=== PATIENT | male | born 1960 | race African-American/Black ===

== ENCOUNTER 2023-12-09 16:49 | Emergency (ER) | payer OTHER ==
[2023-12-09 16:58] VITALS: RESP 20; BMI 32.5
[2023-12-09 18:32] LABS: BASO % 0.8 % (0-2.0); EOS % 0.9 % (0-4.5); HEMOGLOBIN 12.5 GM/dL (11.7-16.9); LYMPH % 27.3 % (8-40); MCHC 32.9 g/dl (32.0-35.9); MEAN CELL VOLUME 94.2 fl (80-96); MEAN PLT VOLUME 8.4 fl (7.5-11.1); MONO % 8.6 % (3.8-10.2); NEUT % 62.4 % (42.8-82.8); PLATELET COUNT 213 10^3/uL (134-434); RBC 4.04 M/mm3 (4.00-5.60); RDW 13.7 % (11.9-15.9)
[2023-12-09 18:47] LABS: INR 1.04 (0.83-1.09)
[2023-12-09 18:49] LABS: ACTIVATED PTT 32.9 SECONDS (25.2-36.5)
[2023-12-09 18:51] LABS: POTASSIUM 4.1 mmol/L (3.5-5.1)
[2023-12-09 18:53] LABS: CALCIUM 9.1 mg/dL (8.5-10.1)
[2023-12-09 18:55] LABS: ALBUMIN 3.5 g/dl (3.4-5.0); BLOOD UREA NITROGEN 13.3 mg/dL (7-18)
[2023-12-09 18:59] LABS: BILIRUBIN,TOTAL 0.7 mg/dL (0.2-1); TOT PROT 6.8 g/dl (6.4-8.2)
[2023-12-09 19:41] VITALS: BP 130/76; PULSE 58; TEMP 97.8
[2023-12-09 19:49] LABS: HIV INTERPRETATION NEGATIVE (NEGATIVE)
== END 2023-12-09 19:40 | disposition home or self-care (01) ==
LOC: JER 16:49
DX: R79.9 Abnormal finding of blood chemistry, unspecified (principal)
CPT/HCPCS: 36415; 80053; 85025; 85610; 85730; 86803; 87389; 99283-25

== ENCOUNTER 2023-12-16 23:11 | Emergency (ER) | payer OTHER ==
[2023-12-16 23:19] VITALS: BP 129/79; PULSE 79; RESP 18; TEMP 97.3; BMI 32.5
[2023-12-17 01:03] LABS: POTASSIUM 4.7 mmol/L (3.5-5.1)
[2023-12-17 01:05] LABS: BLOOD UREA NITROGEN 10.6 mg/dL (7-18); CALCIUM 9.6 mg/dL (8.5-10.1)
[2023-12-17 02:32] LABS: BASO % 0.5 % (0-2.0); EOS % 0.8 % (0-4.5); HEMATOCRIT 36.8 % (35.4-49); HEMOGLOBIN 12.1 GM/dL (11.7-16.9); LYMPH % 18.2 % (8-40); MCHC 32.8 g/dl (32.0-35.9); MEAN CELL VOLUME 94.5 fl (80-96); MEAN PLT VOLUME 9.1 fl (7.5-11.1); MONO % 12.5 % (3.8-10.2); PLATELET COUNT 224 10^3/uL (134-434); RDW 14.1 % (11.9-15.9)
[2023-12-17] MEDS ORDERED: ACETAMINOPHEN 325 MG TABLET (FP) ONE (04:44)
[2023-12-17] MEDS: ACETAMINOPHEN 325 MG TABLET (FP) PO ONE (04:46)
== END 2023-12-17 04:46 | disposition home or self-care (01) ==
LOC: JER 23:11
DX: K12.2 Cellulitis and abscess of mouth (principal); K08.89 Other specified disorders of teeth and supporting structures
CPT/HCPCS: 36415; 70487-TC; 80048; 85025; 99285-25; Q9967

== ENCOUNTER 2024-07-22 05:17 | Day surgery (SDC) | payer OTHER ==
[2024-07-22] MEDS ORDERED: ACETAMINOPHEN 500 MG TABLET (FP) PO PRN (09:06)
[2024-07-22] MEDS: LIDOCAINE HCL 1% PRESERVATIVE FREE - 30ML VIAL IJ ONE (14:08)
[2024-07-22 15:56] VITALS: RESP 18
[2024-07-22] MEDS: IOHEXOL 180 MG/1 ML ML IJ ONE (16:09)
[2024-07-22] MEDS: DEXAMETHASONE SOD PHOSPHATE 10 MG/1 ML VIAL IM ONE (16:10)
[2024-07-22 16:42] VITALS: TEMP 97.7
[2024-07-22 18:18] VITALS: BP 116/68; PULSE 60
== END 2024-07-22 18:38 | disposition home or self-care (01) ==
LOC: JASU-SURG 05:17
PROVIDERS: ATTEND Pain Medicine Pain Medicine
PROC: 3E0R3BZ Introduction of Anesthetic Agent into Spinal Canal, Percutaneous Approach (ICD-10-PCS; 2024-07-22)
PROC: 3E0R33Z Introduction of Anti-inflammatory into Spinal Canal, Percutaneous Approach (ICD-10-PCS; principal; 2024-07-22 15:15)
DX: M54.16 Radiculopathy, lumbar region (principal); M48.061 Spinal stenosis, lumbar region without neurogenic claudication
CPT/HCPCS: 76000-TC-FY; J1100